=== PATIENT | male | born 1960 | race Caucasian/White ===

== ENCOUNTER 2017-07-12 12:58 | Emergency (ER) | payer OTHER ==
[2017-07-12 13:01] VITALS: BP 146/85; PULSE 87; RESP 16; TEMP 98.1; O2SAT 96
[2017-07-12] MEDS ORDERED: ASPI81TA81 (13:07)
[2017-07-12] MEDS ORDERED: ROBA750T PO (13:26)
[2017-07-12] MEDS ORDERED: IBUP-232 PO (13:26)
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
== END 2017-07-12 13:39 | disposition home or self-care (01) ==
LOC: NEPK 12:58
DX: T14.8XXA Other injury of unspecified body region, initial encounter (principal); V43.52XA Car driver injured in collision with other type car in traffic accident, initial encounter
CPT/HCPCS: 99283